=== PATIENT | female | born 1990 | race Native Hawaiian/Other Pacific Islander ===

== ENCOUNTER 2018-05-29 11:39 | Emergency (ER) | payer OTHER ==
[2018-05-29] MEDS ORDERED: Sodium Chloride 0.9% 1,000 ML IV STA (11:52)
[2018-05-29 12:05] VITALS: O2SAT 100
--- NOTE | 2018-05-29 12:15 | ED PDOC ---
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 Patient states she was in the OR when pain began which radiated to back associated with multiple episodes of nonbloody, nonbilious vomiting, lightheadedness, weakness, nausea, and diarrhea. She also states that she noticed her menses started immediately afterwards. Patient reports similar severe menstrual related symptoms in the past which has led to ED visits. PCP: none provided Past Medical History Reviewed: Historical Data, Nursing Documentation, Vital Signs Vital Signs: Last Vital Signs Temp 97.3 F L 05/29/18 12:11 Pulse 65 05/29/18 11:57 Resp 20 05/29/18 11:57 BP 117/27 L 05/29/18 11:57 Pulse Ox 100 05/29/18 11:57 - Medical History PMH: No Chronic Diseases - Surgical History Surgical History: No Surg Hx - Family History Family History: States: No Known Family Hx - Social History Current smoker - smoking cessation education provided: No Ex-Smoker (has not smoked in the last 12 months): No Alcohol: None Drugs: Denies - Home Medications Home Medications: Ambulatory Orders Medication Instructions Recorded Ibuprofen [Motrin Tab] 600 mg PO Q8 PRN #30 tab 05/29/18 Ondansetron ODT [Zofran ODT] 1 odt PO Q6 PRN #20 odt 05/29/18 - Allergies Allergies/Adverse Reactions: Allergies Allergy/AdvReac Type Severity Reaction Status Date / Time No Known Allergies Allergy Verified 05/29/18 11:43 Review of Systems ROS Statement: Except As Marked, All Systems Reviewed And Found Negative (and as per HPI) Constitutional: Positive for: Weakness Gastrointestinal: Positive for: Nausea, Vomiting (NBNB), Abdominal Pain (lower), Diarrhea Genitourinary Female: Positive for: Pelvic Pain Musculoskeletal: Positive for: Back Pain Neurological: Positive for: Other (lightheaded) Physical Exam - Reviewed Nursing Documentation Reviewed: Yes Vital Signs Reviewed: Yes - Physical Exam Appears: Positive for: In Acute Distress Head Exam: Positive for: ATRAUMATIC, NORMOCEPHALIC Skin: Positive for: Warm, Dry Eye Exam: Positive for: EOMI, PERRL ENT: Positive for: Other (tacky mucus membranes) Gastrointestinal/Abdominal: Positive for: Soft, Tenderness Neurological/Psych: Positive for: Alert, Oriented. Negative for: Motor/Sensory Deficits - Laboratory Results Result Diagrams: 05/29/18 12:00 05/29/18 12:00 - ECG O2 Sat by Pulse Oximetry: 100 (RA) Pulse Ox Interpretation: Normal Medical Decision Making Medical Decision Making: Initial Impression: dysmenorrhea Differential diagnosis includes but not limited to: gastroenteritis; dehydration; electrolyte abnormality; anemia Initial Plan: * Labs * EKG * Accucheck * IV Dextrose * Morphine 2mg IVP * IV fluids * Pepcid 20mg IVP * Toradol 15mg IVP * Zofran 8mg IV --- 230p Pt feeling much better. Tolerating PO in ER. Eager to be discharged. Scribe Attestation: Documented by Reyna Erickson, acting as a scribe for Rosina Carballo MD. Provider Scribe Attestation: All medical record entries made by the Scribe were at my direction and personally dictated by me. I have reviewed the chart and agree that the record accurately reflects my personal performance of the history, physical exam, me dical decision making, and the department course for this patient. I have also personally directed, reviewed, and agree with the discharge instructions and disposition. Disposition - Clinical Impression Clinical Impression: Severe dysmenorrhea Counseled Patient/Family Regarding: Studies Performed, Diagnosis, Need For Followup, Rx Given - Disposition Disposition: Routine/Home Disposition Time: 14:00 Condition: IMPROVED Prescriptions: Ibuprofen [Motrin Tab] 600 mg PO Q8 PRN #30 tab PRN Reason: Pain, Moderate (4-7) Ondansetron ODT [Zofran ODT] 1 odt PO Q6 PRN #20 odt PRN Reason: Nausea/Vomiting Instructions: Menstrual Cramps (DC), Nausea and Vomiting, Adult (DC) Forms: [facility] ED School/Work Excuse
[2018-05-29 12:37] LABS: ALB/GLOB RATIO 1.6 (1.0-2.1); ALBUMIN 4.4 g/dL (3.5-5.0); ALT/SGPT 28 U/L (9-52); AST/SGOT 24 U/L (14-36); BASO # 0.1 K/uL (0.0-0.2); BASO % 0.9 % (0.0-2.0); BLOOD UREA NITROGEN 10 mg/dl (7-17); CALCIUM 9.5 mg/dL (8.4-10.2); EOS # 0.1 K/uL (0.0-0.7); EOS % 0.9 % (0.0-4.0); GFR NON-AFRICAN AMERICAN > 60; HEMOGLOBIN 13.2 g/dL (12.0-16.0); LYMPH # 5.1 K/uL (1.0-4.3); LYMPH % 43.5 % (20.0-40.0); MEAN CELL VOLUME 88.5 fl (81.0-99.0); MEAN CORPUSCULAR HEMOGLOBIN 30.2 pg (27.0-31.0); MEAN CORPUSCULAR HGB CONC 34.1 g/dL (33.0-37.0); MEAN PLATELET VOLUME 8.3 fl (7.2-11.7); MONO # 0.6 K/uL (0.0-0.8); MONO % 5.1 % (0.0-10.0); NEUT # 5.9 K/uL (1.8-7.0); NEUT % 49.6 % (50.0-75.0); RBC 4.38 Mil/uL (3.80-5.20); RED CELL DISTRIBUTION WIDTH 12.8 % (11.5-14.5); WHITE BLOOD COUNT 11.8 K/uL (4.8-10.8)
[2018-05-29 12:46] LABS: LIPASE 100 U/L (23-300)
[2018-05-29 14:52] VITALS: BP 113/79; PULSE 94; RESP 16; TEMP 97.8
--- NOTE | 2018-05-30 21:17 | CARD ---
APPROVED REPORT Date of service: 05/29/2018 EKG Measurement Heart [id number] <Conclusion> Sinus bradycardia Otherwise normal ECG
== END 2018-05-29 14:53 | disposition home or self-care (01) ==
LOC: H.ER 11:39
DX: N94.6 Dysmenorrhea, unspecified (principal); Z87.891 Personal history of nicotine dependence
CPT/HCPCS: 80053; 82948; 83605; 83690; 83735; 84702; 84703; 85025; 86850; 86900; 93005; 96361; 96374; 96375; 99285; J1885; J2405; J7030